=== PATIENT | male | born 1985 | race African-American/Black ===

== ENCOUNTER 2022-02-01 11:59 | Inpatient (IN) | payer BC ==
[~2022-02-01 11:59] MED LIST: Iopamidol 300 61% 100 ML VIAL FS ONE
[2022-02-01 12:55] LABS: #Eosinphils 0.1 10x3/uL (0.0-0.5); #Monocytes 0.6 10x3/uL (0.0-1.1); #Neutrophils 14.4 10x3/uL (1.5-8.4); %Basophils 0.2 % (0.0-2.0); %Eosinophils 0.4 % (0.0-6.0); %Lymphocytes 4.7 % (18.0-47.0); %Monocytes 3.6 % (0.0-10.0); %Neutrophils 90.1 % (40.0-75.0); Hemoglobin 14.3 g/dL (13.5-17.5); Mean Corpuscular Hemoglobin 29.8 pg (27.0-33.0); Mean Platelet Volume 9.7 fl (7.4-10.4); Platelet Count 275 10x3/uL (150-450); RBC Distribution Width 13.4 % (11.5-14.5)
[2022-02-01 13:05] LABS: Actual Bicarbonate (HCO3a) 24.8 mEq/L (22-28); Base Excess (BEa) 2.1 mEq/L (-2.0 to +3.0); CO2 Tension 33.2 mmHg (35.0-45.0); Calcium, Ionized (arterial) 1.15 mmol/L (1.12-1.30); Carboxyhemoglobin (COHb) 0.7 gm% (0.0-3.0); Hemoglobin (Hb) 14.7 g/dL (14.0-18.0); O2 Tension (PaO2), arterial 90.3 mmHg (80.0-100.0); Potassium - ABG Lab 4.4 mmol/L (3.70-5.30); Puncture Site LRA; pH, Arterial 7.49 (7.35-7.45)
[2022-02-01 13:13] LABS: ALT (SGPT) 15 U/L (8-55); AST (SGOT) 23 U/L (5-34); Albumin 3.5 g/dL (3.5-5.0); Alkaline Phosphatase 64 U/L (40-110); Anion Gap 18 mmol/L (10-20); BUN (Urea Nitrogen) 18 mg/dL (8.9-20.6); Bilirubin, Total 0.6 mg/dL (0.2-1.2); Calc. Creatinine Clearance 0 mL/min (70-130); Calcium 9.4 mg/dL (7.8-10.44); Carbon Dioxide 22 mmol/L (22-29); Chloride 98 mmol/L (98-107); Estimated GFR 89; Globulin 3.7 g/dL (2.4-3.5); Glucose 113 mg/dL (70-105); Potassium 4.6 mmol/L (3.5-5.1); Protein, Total 7.2 g/dL (6.0-8.3); Sodium 133 mmol/L (136-145)
[2022-02-01] MEDS ORDERED: Vancomycin 1 GM VIAL ONE (13:41)
[2022-02-01] MEDS ORDERED: Acetaminophen 325 MG TAB PO PRN (13:47)
[2022-02-01] MEDS ORDERED: HYDROcodone/Acetaminophen 5/325 mg Tablet PO PRN (13:47)
[2022-02-01] MEDS ORDERED: Doxycycline 100 MG in Syringe 0 ML IVPB SCH (13:58)
[2022-02-01 14:13] LABS: HIV (1/2) Antibody/Antigen Reflxed Confirmation (NonReactive); HIV 1/2 INDEX 1576.17 S/CO (<1.00)
[2022-02-01 14:46] LABS: SARS-CoV-2 NAA Rapid Test Not Detected (NotDetected)
[2022-02-01] MEDS ORDERED: predniSONE 20 MG TAB ONE (14:47)
[2022-02-01] MEDS ORDERED: Sulfameth/Trimethoprim DS 800-160mg TAB ONE (14:48)
[2022-02-01] MEDS ORDERED: SULFAMETHOXAZOLE IVPB SCH (15:15)
[2022-02-01] MEDS ORDERED: WATER IVPB SCH (15:15)
[2022-02-01] MEDS ORDERED: TRIMETHOPRIM IVPB SCH (15:15)
[2022-02-01] MEDS ORDERED: DEXTROSE 5% IVPB SCH (15:15)
[2022-02-01] MEDS ORDERED: Piperacillin/Tazobactam 3.375 GM in Sodium Chloride 0.9% 100 ML IVPB SCH (18:00)
[2022-02-01] MEDS ORDERED: methylPREDNISolone Sod Succ 40 MG VIAL IVP SCH (18:00)
[2022-02-01] MEDS: predniSONE 20 MG TAB PO SCH (20:18)
[2022-02-01] MEDS: Enoxaparin Sodium 40 MG/0.4 ML SYRINGE SC SCH (20:19)
[2022-02-01] MEDS: Piperacillin/Tazobactam 3.375 GM in Sodium Chloride 0.9% 100 ML IVPB SCH (21:29)
[2022-02-01] MEDS: SULFAMETHOXAZOLE IVPB SCH (21:30)
[2022-02-01] MEDS: WATER IVPB SCH (21:30)
[2022-02-01] MEDS: DEXTROSE 5% IVPB SCH (21:30)
[2022-02-01] MEDS: TRIMETHOPRIM IVPB SCH (21:30)
[2022-02-01] MEDS: Vancomycin HCl 750 MG in Sodium Chloride 0.9% 250 ML 250 ML IVPB SCH (22:24)
[2022-02-02] MEDS: DEXTROSE 5% IVPB SCH ×4 (03:23→21:24)
[2022-02-02] MEDS: WATER IVPB SCH ×4 (03:23→21:24)
[2022-02-02] MEDS: TRIMETHOPRIM IVPB SCH ×4 (03:23→21:24)
[2022-02-02] MEDS: SULFAMETHOXAZOLE IVPB SCH ×4 (03:23→21:24)
[2022-02-02 03:48] LABS: #Monocytes 0.2 10x3/uL (0.0-1.1); #Neutrophils 9.3 10x3/uL (1.5-8.4); %Basophils 0.2 % (0.0-2.0); %Lymphocytes 7.9 % (18.0-47.0); Hemoglobin 12.2 g/dL (13.5-17.5); Mean Corpuscular HGB CONC 34.4 g/dL (32.0-36.0); Mean Corpuscular Hemoglobin 29.5 pg (27.0-33.0); Mean Platelet Volume 9.6 fl (7.4-10.4); Platelet Count 263 10x3/uL (150-450); RBC Distribution Width 13.4 % (11.5-14.5); Red Blood Cell (RBC) Count 4.13 10x6/uL (4.32-5.72); White Blood Cell (WBC) Count 10.5 10x3/uL (3.5-10.5)
[2022-02-02 04:01] LABS: ALT (SGPT) 14 U/L (8-55); AST (SGOT) 19 U/L (5-34); Albumin 2.9 g/dL (3.5-5.0); Alkaline Phosphatase 53 U/L (40-110); Anion Gap 15 mmol/L (10-20); BUN (Urea Nitrogen) 18 mg/dL (8.9-20.6); Bilirubin, Total 0.3 mg/dL (0.2-1.2); Calc. Creatinine Clearance 96 mL/min (70-130); Calcium 8.8 mg/dL (7.8-10.44); Carbon Dioxide 20 mmol/L (22-29); Chloride 104 mmol/L (98-107); Estimated GFR 117; Globulin 3.2 g/dL (2.4-3.5); Glucose 123 mg/dL (70-105); Potassium 4.7 mmol/L (3.5-5.1); Protein, Total 6.1 g/dL (6.0-8.3); Sodium 134 mmol/L (136-145)
[2022-02-02] MEDS: Vancomycin HCl 750 MG in Sodium Chloride 0.9% 250 ML 250 ML IVPB SCH ×4 (05:22→21:48)
[2022-02-02] MEDS: Piperacillin/Tazobactam 3.375 GM in Sodium Chloride 0.9% 100 ML IVPB SCH ×3 (05:23→21:03)
[2022-02-02 05:42] LABS: ALV-art Gradient 244.875 mmHg (0-20); Actual Bicarbonate (HCO3a) 21.9 mEq/L (22-28); Base Excess (BEa) -2.4 mEq/L (-2.0 to +3.0); CO2 Tension 36.3 mmHg (35.0-45.0); Calcium, Ionized (arterial) 1.19 mmol/L (1.12-1.30); Carboxyhemoglobin (COHb) 0.1 gm% (0.0-3.0); Critical Notified By: CP.PH; Hemoglobin (Hb) 13.2 g/dL (14.0-18.0); O2 Tension (PaO2), arterial 101.9 mmHg (80.0-100.0); Potassium - ABG Lab 4.3 mmol/L (3.70-5.30); Puncture Site RRA; RapidComm Collect By CP.PH
[2022-02-02] MEDS: predniSONE 20 MG TAB PO SCH (08:30)
[2022-02-02 11:45] LABS: Legionella Urinary Ag Negative (Negative); Strep pneumo Urine Ag NEGATIVE (NEGATIVE)
[2022-02-02 13:48] LABS: Vancomycin, Trough 11.9 ug/mL
[2022-02-02 14:10] LABS: Syphilis Antibody Nonreactive (Nonreactive); Syphilis Antibody Index 0.03 S/CO (<1.00 Non-Reactive)
[2022-02-02] MEDS: guaiFENesin 100 MG/5 ML UDCUP PO PRN (17:56)
[2022-02-02] MEDS: Raltegravir Potassium 400 MG TAB PO SCH (21:02)
[2022-02-02] MEDS: methylPREDNISolone Sod Succ 40 MG VIAL IVP SCH (21:03)
[2022-02-02] MEDS: Enoxaparin Sodium 40 MG/0.4 ML SYRINGE SC SCH (21:03)
[2022-02-03] MEDS: DEXTROSE 5% IVPB SCH ×4 (03:55→21:19)
[2022-02-03] MEDS: SULFAMETHOXAZOLE IVPB SCH ×4 (03:55→21:19)
[2022-02-03] MEDS: TRIMETHOPRIM IVPB SCH ×4 (03:55→21:19)
[2022-02-03] MEDS: WATER IVPB SCH ×4 (03:55→21:19)
[2022-02-03 04:21] LABS: Mean Corpuscular Hemoglobin 29.7 pg (27.0-33.0); Mean Corpuscular Volume 84.9 fl (81.2-95.1); Mean Platelet Volume 10.3 fl (7.4-10.4); Platelet Count 283 10x3/uL (150-450); RBC Distribution Width 13.2 % (11.5-14.5); Red Blood Cell (RBC) Count 4.04 10x6/uL (4.32-5.72); White Blood Cell (WBC) Count 23.9 10x3/uL (3.5-10.5)
[2022-02-03 04:32] LABS: Anion Gap 13 mmol/L (10-20); BUN (Urea Nitrogen) 17 mg/dL (8.9-20.6); Calc. Creatinine Clearance 92 mL/min (70-130); Carbon Dioxide 21 mmol/L (22-29); Chloride 103 mmol/L (98-107); Estimated GFR 115; Glucose 127 mg/dL (70-105); Potassium 4.5 mmol/L (3.5-5.1); Sodium 132 mmol/L (136-145)
[2022-02-03 04:44] LABS: MDiff Complete? YES
[2022-02-03 04:46] LABS: Band 1 % (5-11); Lymphocytes 5 % (21-51); Monocytes 3 % (0-10); Neutrophil 90 % (42-75); Platelet Morphology Comment Appears Adequate; Reactive Lymphocytes 1 % (0-10)
[2022-02-03 04:47] LABS: RBC Morphology Normal; Toxic Granulation MODERATE; Vacuoles SLIGHT
[2022-02-03] MEDS: guaiFENesin 100 MG/5 ML UDCUP PO PRN (05:19)
[2022-02-03] MEDS: Piperacillin/Tazobactam 3.375 GM in Sodium Chloride 0.9% 100 ML IVPB SCH ×3 (05:19→21:19)
[2022-02-03] MEDS: methylPREDNISolone Sod Succ 40 MG VIAL IVP SCH ×2 (09:11→20:22)
[2022-02-03] MEDS: Emtricitabine/Tenofovir 200-300 MG TAB PO SCH (09:11)
[2022-02-03] MEDS: Fluconazole 100 MG TAB PO SCH (09:11)
[2022-02-03] MEDS: Raltegravir Potassium 400 MG TAB PO SCH ×2 (09:11→20:22)
[2022-02-03] MEDS: guaiFENesin/Codeine Phosphate 100 mg/10 mg 5 ml UD Cup PO PRN ×2 (10:04→20:22)
[2022-02-03 10:37] LABS: HIV 1 Antibody Multi-Spot Reactive (Non Reactive); HIV 2 Antibody Multi-Spot Non Reactive (Non Reactive); HIV Multi-spot Interp HIV-1 Positive (.)
[2022-02-03] MEDS: Benzonatate 100 MG CAP PO PRN ×2 (15:59→20:22)
[2022-02-03] MEDS: Enoxaparin Sodium 40 MG/0.4 ML SYRINGE SC SCH (20:22)
[2022-02-04] MEDS: TRIMETHOPRIM IVPB SCH ×4 (03:43→21:30)
[2022-02-04] MEDS: WATER IVPB SCH ×4 (03:43→21:30)
[2022-02-04] MEDS: DEXTROSE 5% IVPB SCH ×4 (03:43→21:30)
[2022-02-04] MEDS: SULFAMETHOXAZOLE IVPB SCH ×4 (03:43→21:30)
[2022-02-04] MEDS: Benzonatate 100 MG CAP PO PRN ×4 (03:47→20:54)
[2022-02-04] MEDS: Piperacillin/Tazobactam 3.375 GM in Sodium Chloride 0.9% 100 ML IVPB SCH (05:26)
[2022-02-04 05:33] LABS: #Monocytes 0.4 10x3/uL (0.0-1.1); #Neutrophils 17.4 10x3/uL (1.5-8.4); %Basophils 0.1 % (0.0-2.0); %Lymphocytes 5.6 % (18.0-47.0); %Monocytes 2.2 % (0.0-10.0); %Neutrophils 91.3 % (40.0-75.0); Hemoglobin 12.5 g/dL (13.5-17.5); Mean Corpuscular HGB CONC 35.3 g/dL (32.0-36.0); Mean Corpuscular Hemoglobin 29.8 pg (27.0-33.0); Mean Corpuscular Volume 84.5 fl (81.2-95.1); Platelet Count 293 10x3/uL (150-450); RBC Distribution Width 13.4 % (11.5-14.5); Red Blood Cell (RBC) Count 4.19 10x6/uL (4.32-5.72); White Blood Cell (WBC) Count 19.1 10x3/uL (3.5-10.5)
[2022-02-04 05:58] LABS: Anion Gap 17 mmol/L (10-20); BUN (Urea Nitrogen) 16 mg/dL (8.9-20.6); Calc. Creatinine Clearance 88 mL/min (70-130); Carbon Dioxide 21 mmol/L (22-29); Chloride 101 mmol/L (98-107); Sodium 134 mmol/L (136-145)
[2022-02-04 05:59] LABS: Calcium 9.4 mg/dL (7.8-10.44); Estimated GFR 108; Glucose 124 mg/dL (70-105)
[2022-02-04] MEDS: Emtricitabine/Tenofovir 200-300 MG TAB PO SCH (08:36)
[2022-02-04] MEDS: Fluconazole 100 MG TAB PO SCH (08:36)
[2022-02-04] MEDS: Raltegravir Potassium 400 MG TAB PO SCH ×2 (08:36→20:55)
[2022-02-04] MEDS: methylPREDNISolone Sod Succ 40 MG VIAL IVP SCH ×2 (08:36→20:53)
[2022-02-04 09:37] LABS: %CD4 (Helper/Inducer) 0.8 % (30.8-58.5); Absolute CD4 7 /uL (359-1519); Lymphocytes/Gated Cell Count 0.9 x10E3/uL (0.7-3.1); Total Lymphocyte 6 % (Not Estab.); WBC Total Count 16.3 x10E3/uL (3.4-10.8)
[2022-02-04] MEDS: Enoxaparin Sodium 40 MG/0.4 ML SYRINGE SC SCH (20:53)
[2022-02-04] MEDS: guaiFENesin/Codeine Phosphate 100 mg/10 mg 5 ml UD Cup PO PRN (20:54)
[2022-02-04] MEDS: Senokot S 8.6-50 MG TAB PO SCH (20:54)
[2022-02-05] MEDS: TRIMETHOPRIM IVPB SCH ×4 (03:13→22:50)
[2022-02-05] MEDS: DEXTROSE 5% IVPB SCH ×4 (03:13→22:50)
[2022-02-05] MEDS: SULFAMETHOXAZOLE IVPB SCH ×4 (03:13→22:50)
[2022-02-05] MEDS: WATER IVPB SCH ×4 (03:13→22:50)
[2022-02-05 03:48] LABS: #Monocytes 0.2 10x3/uL (0.0-1.1); %Basophils 0.1 % (0.0-2.0); %Eosinophils 0.1 % (0.0-6.0); %Lymphocytes 3.4 % (18.0-47.0); %Monocytes 1.1 % (0.0-10.0); %Neutrophils 94.1 % (40.0-75.0); Hemoglobin 12.8 g/dL (13.5-17.5); Mean Corpuscular HGB CONC 34.5 g/dL (32.0-36.0); Mean Corpuscular Hemoglobin 29.2 pg (27.0-33.0); Mean Corpuscular Volume 84.7 fl (81.2-95.1); Mean Platelet Volume 10.3 fl (7.4-10.4); Platelet Count 316 10x3/uL (150-450); RBC Distribution Width 13.3 % (11.5-14.5); Red Blood Cell (RBC) Count 4.38 10x6/uL (4.32-5.72)
[2022-02-05 04:00] LABS: Anion Gap 14 mmol/L (10-20); BUN (Urea Nitrogen) 18 mg/dL (8.9-20.6); Calc. Creatinine Clearance 79 mL/min (70-130); Calcium 9.6 mg/dL (7.8-10.44); Carbon Dioxide 23 mmol/L (22-29); Chloride 98 mmol/L (98-107); Estimated GFR 96; Glucose 120 mg/dL (70-105); Potassium 4.6 mmol/L (3.5-5.1); Sodium 130 mmol/L (136-145)
[2022-02-05 08:18] LABS: Ref Lab Test Ordered PNEUMOCYSTIS PCR; Reference Lab Name LABCORP
[2022-02-05] MEDS: methylPREDNISolone Sod Succ 40 MG VIAL IVP SCH ×2 (09:16→20:19)
[2022-02-05] MEDS: Fluconazole 100 MG TAB PO SCH (09:17)
[2022-02-05] MEDS: Emtricitabine/Tenofovir 200-300 MG TAB PO SCH (09:17)
[2022-02-05] MEDS: Senokot S 8.6-50 MG TAB PO SCH ×2 (09:17→19:29)
[2022-02-05] MEDS: Raltegravir Potassium 400 MG TAB PO SCH ×2 (09:17→20:20)
[2022-02-05] MEDS: Benzonatate 100 MG CAP PO PRN (17:14)
[2022-02-05] MEDS: guaiFENesin/Codeine Phosphate 100 mg/10 mg 5 ml UD Cup PO PRN (19:29)
[2022-02-05] MEDS: Enoxaparin Sodium 40 MG/0.4 ML SYRINGE SC SCH (20:19)
[2022-02-05 23:08] LABS: Mycoplasma pneumoniae IgG AB 942 U/mL (0-99); Mycoplasma pneumoniae IgM AB Less than 770 U/mL (0-769)
[2022-02-06] MEDS: SULFAMETHOXAZOLE IVPB SCH ×4 (04:09→21:49)
[2022-02-06] MEDS: WATER IVPB SCH ×4 (04:09→21:49)
[2022-02-06] MEDS: DEXTROSE 5% IVPB SCH ×4 (04:09→21:49)
[2022-02-06] MEDS: TRIMETHOPRIM IVPB SCH ×4 (04:09→21:49)
[2022-02-06] MEDS: Benzonatate 100 MG CAP PO PRN (04:25)
[2022-02-06] MEDS: methylPREDNISolone Sod Succ 40 MG VIAL IVP SCH ×2 (08:38→20:24)
[2022-02-06] MEDS: Fluconazole 100 MG TAB PO SCH (08:39)
[2022-02-06] MEDS: Raltegravir Potassium 400 MG TAB PO SCH ×2 (08:39→20:24)
[2022-02-06] MEDS: Senokot S 8.6-50 MG TAB PO SCH ×2 (08:39→20:25)
[2022-02-06] MEDS: Emtricitabine/Tenofovir 200-300 MG TAB PO SCH (08:39)
[2022-02-06 09:39] LABS: QuantiFERON-TB Gold Plus Indeterminate (Negative)
[2022-02-06] MEDS: Benzonatate 100 MG CAP PO SCH ×3 (10:18→20:24)
[2022-02-06 14:36] LABS: CMV DNA-PCR Test Negative (Negative)
[2022-02-06] MEDS: Enoxaparin Sodium 40 MG/0.4 ML SYRINGE SC SCH (20:24)
[2022-02-06] MEDS: guaiFENesin/Codeine Phosphate 100 mg/10 mg 5 ml UD Cup PO PRN (20:24)
[2022-02-07] MEDS: SULFAMETHOXAZOLE IVPB SCH ×4 (03:20→21:39)
[2022-02-07] MEDS: DEXTROSE 5% IVPB SCH ×4 (03:20→21:39)
[2022-02-07] MEDS: TRIMETHOPRIM IVPB SCH ×4 (03:20→21:39)
[2022-02-07] MEDS: WATER IVPB SCH ×4 (03:20→21:39)
[2022-02-07] MEDS: methylPREDNISolone Sod Succ 40 MG VIAL IVP SCH ×2 (08:24→21:14)
[2022-02-07] MEDS: guaiFENesin/Codeine Phosphate 100 mg/10 mg 5 ml UD Cup PO PRN ×2 (08:24→15:48)
[2022-02-07] MEDS: Benzonatate 100 MG CAP PO SCH ×3 (08:24→21:14)
[2022-02-07] MEDS: Senokot S 8.6-50 MG TAB PO SCH ×2 (08:25→21:14)
[2022-02-07] MEDS: Emtricitabine/Tenofovir 200-300 MG TAB PO SCH (08:28)
[2022-02-07] MEDS: Raltegravir Potassium 400 MG TAB PO SCH ×2 (08:28→21:14)
[2022-02-07] MEDS: Fluconazole 100 MG TAB PO SCH (08:28)
[2022-02-07] MEDS: Polyethylene Glycol 3350 17 GM Packet PO SCH (09:37)
[2022-02-07 18:12] LABS: A. flavus Negative (Neg:<1:1); A. fumigatus Negative (Neg:<1:1); A. niger Negative (Neg:<1:1); Blastomyces AB Negative (Neg:<1:1)
[2022-02-07] MEDS: Enoxaparin Sodium 40 MG/0.4 ML SYRINGE SC SCH ×2 (21:14→21:17)
[2022-02-08] MEDS: Sulfameth/Trimethoprim DS 800-160mg TAB PO SCH ×4 (04:40→21:13)
[2022-02-08 05:10] LABS: Anion Gap 13 mmol/L (10-20); BUN (Urea Nitrogen) 22 mg/dL (8.9-20.6); CRP (Inflammatory) 0.55 mg/dL (= or < 0.5); Calc. Creatinine Clearance 84 mL/min (70-130); Calcium 10.3 mg/dL (7.8-10.44); Carbon Dioxide 24 mmol/L (22-29); Chloride 95 mmol/L (98-107); Estimated GFR 103; Glucose 141 mg/dL (70-105); Potassium 5.1 mmol/L (3.5-5.1); Sodium 127 mmol/L (136-145)
[2022-02-08 05:31] LABS: #Monocytes 0.2 10x3/uL (0.0-1.1); %Basophils 0.1 % (0.0-2.0); %Lymphocytes 7.2 % (18.0-47.0); %Monocytes 1.3 % (0.0-10.0); %Neutrophils 89.1 % (40.0-75.0); Hemoglobin 13.9 g/dL (13.5-17.5); Mean Corpuscular HGB CONC 34.3 g/dL (32.0-36.0); Mean Corpuscular Hemoglobin 29.4 pg (27.0-33.0); Mean Corpuscular Volume 85.6 fl (81.2-95.1); Mean Platelet Volume 10.1 fl (7.4-10.4); Platelet Count 381 10x3/uL (150-450); RBC Distribution Width 13.5 % (11.5-14.5); Red Blood Cell (RBC) Count 4.73 10x6/uL (4.32-5.72); White Blood Cell (WBC) Count 13.5 10x3/uL (3.5-10.5)
[2022-02-08] MEDS: guaiFENesin/Codeine Phosphate 100 mg/10 mg 5 ml UD Cup PO PRN ×2 (08:07→21:13)
[2022-02-08] MEDS: Raltegravir Potassium 400 MG TAB PO SCH ×2 (08:08→21:13)
[2022-02-08] MEDS: Emtricitabine/Tenofovir 200-300 MG TAB PO SCH (08:09)
[2022-02-08] MEDS: Fluconazole 100 MG TAB PO SCH (08:09)
[2022-02-08] MEDS: Polyethylene Glycol 3350 17 GM Packet PO SCH (08:11)
[2022-02-08] MEDS: Benzonatate 100 MG CAP PO SCH ×3 (08:16→21:13)
[2022-02-08] MEDS: Senokot S 8.6-50 MG TAB PO SCH ×2 (08:16→19:54)
[2022-02-08] MEDS ORDERED: methylPREDNISolone 4 mg Tablet PO SCH (09:00)
[2022-02-08] MEDS: Enoxaparin Sodium 40 MG/0.4 ML SYRINGE SC SCH (21:14)
[2022-02-09] MEDS: Sulfameth/Trimethoprim DS 800-160mg TAB PO SCH ×4 (03:36→21:23)
[2022-02-09] MEDS: Benzonatate 100 MG CAP PO SCH ×3 (08:28→21:24)
[2022-02-09] MEDS: guaiFENesin/Codeine Phosphate 100 mg/10 mg 5 ml UD Cup PO PRN ×2 (08:28→21:23)
[2022-02-09] MEDS: Fluconazole 100 MG TAB PO SCH (08:30)
[2022-02-09] MEDS: Emtricitabine/Tenofovir 200-300 MG TAB PO SCH (08:30)
[2022-02-09] MEDS: Raltegravir Potassium 400 MG TAB PO SCH ×2 (08:31→21:23)
[2022-02-09] MEDS: methylPREDNISolone 4 mg Tablet PO SCH (08:32)
[2022-02-09] MEDS: Polyethylene Glycol 3350 17 GM Packet PO SCH (08:35)
[2022-02-09] MEDS: Senokot S 8.6-50 MG TAB PO SCH ×2 (10:35→21:24)
[2022-02-09] MEDS: Enoxaparin Sodium 40 MG/0.4 ML SYRINGE SC SCH (21:24)
[2022-02-10] MEDS: Sulfameth/Trimethoprim DS 800-160mg TAB PO SCH ×4 (04:04→21:57)
[2022-02-10 04:45] VITALS: BMI 22.4
[2022-02-10] MEDS: Polyethylene Glycol 3350 17 GM Packet PO SCH (08:43)
[2022-02-10] MEDS: Senokot S 8.6-50 MG TAB PO SCH ×2 (08:43→21:57)
[2022-02-10] MEDS: Benzonatate 100 MG CAP PO SCH ×3 (09:47→21:57)
[2022-02-10] MEDS: methylPREDNISolone 4 mg Tablet PO SCH (09:47)
[2022-02-10] MEDS: Fluconazole 100 MG TAB PO SCH (09:47)
[2022-02-10] MEDS: Emtricitabine/Tenofovir 200-300 MG TAB PO SCH (09:47)
[2022-02-10] MEDS: Raltegravir Potassium 400 MG TAB PO SCH ×2 (09:58→21:58)
[2022-02-10] MEDS: Enoxaparin Sodium 40 MG/0.4 ML SYRINGE SC SCH (21:57)
[2022-02-11] MEDS: Sulfameth/Trimethoprim DS 800-160mg TAB PO SCH ×4 (06:03→21:39)
[2022-02-11] MEDS: Polyethylene Glycol 3350 17 GM Packet PO SCH (08:20)
[2022-02-11] MEDS: methylPREDNISolone 4 mg Tablet PO SCH (08:20)
[2022-02-11] MEDS: Emtricitabine/Tenofovir 200-300 MG TAB PO SCH (08:20)
[2022-02-11] MEDS: Benzonatate 100 MG CAP PO SCH ×3 (08:20→21:37)
[2022-02-11] MEDS: Raltegravir Potassium 400 MG TAB PO SCH ×2 (08:20→21:38)
[2022-02-11] MEDS: Fluconazole 100 MG TAB PO SCH (08:20)
[2022-02-11] MEDS: Senokot S 8.6-50 MG TAB PO SCH ×2 (08:20→21:39)
[2022-02-11] MEDS: Sodium Chloride For Inhalation 0.9% 3 ML NEB NEB SCH (20:17)
[2022-02-11] MEDS: Enoxaparin Sodium 40 MG/0.4 ML SYRINGE SC SCH (21:37)
[2022-02-12] MEDS: Sodium Chloride For Inhalation 0.9% 3 ML NEB NEB SCH ×2 (01:11→07:05)
[2022-02-12] MEDS: Sulfameth/Trimethoprim DS 800-160mg TAB PO SCH ×2 (06:11→08:35)
[2022-02-12 08:35] VITALS: BP 125/68; TEMP 98.3
[2022-02-12] MEDS: methylPREDNISolone 4 mg Tablet PO SCH (08:35)
[2022-02-12] MEDS: Benzonatate 100 MG CAP PO SCH (08:35)
[2022-02-12] MEDS: Raltegravir Potassium 400 MG TAB PO SCH (08:35)
[2022-02-12] MEDS: Fluconazole 100 MG TAB PO SCH (08:35)
[2022-02-12] MEDS: Senokot S 8.6-50 MG TAB PO SCH (08:35)
[2022-02-12] MEDS: Emtricitabine/Tenofovir 200-300 MG TAB PO SCH (08:35)
[2022-02-12] MEDS: Polyethylene Glycol 3350 17 GM Packet PO SCH (08:36)
== END 2022-02-12 12:03 | disposition home or self-care (01) | DRG 974 ==
LOC: CSHERS 11:59 → SUATTDRO 11:59 → CSHICU 17:25 → CSHTELE 02-10 20:16
PROVIDERS: ADMIT Internal Medicine; ATTEND Family Medicine
PROC: 3E03329 Introduction of Other Anti-infective into Peripheral Vein, Percutaneous Approach (ICD-10-PCS; principal; 2022-02-01)
PROC: 5A0955A Assistance with Respiratory Ventilation, Greater than 96 Consecutive Hours, High Flow/Velocity Cannula (ICD-10-PCS; 2022-02-01)
DX: A41.9 Sepsis, unspecified organism (principal); J96.01 Acute respiratory failure with hypoxia; B20 Human immunodeficiency virus [HIV] disease; B59 Pneumocystosis; B37.0 Candidal stomatitis; E87.1 Hypo-osmolality and hyponatremia; F17.210 Nicotine dependence, cigarettes, uncomplicated; R65.20 Severe sepsis without septic shock; Z20.822 Contact with and (suspected) exposure to COVID-19; Z88.8 Allergy status to other drugs, medicaments and biological substances; Z79.899 Other long term (current) drug therapy; Z79.52 Long term (current) use of systemic steroids; Z83.3 Family history of diabetes mellitus; Z82.49 Family history of ischemic heart disease and other diseases of the circulatory system
CPT/HCPCS: 36415; 36600; 71045; 71270; 80048; 80053; 80202; 82805; 83605; 83615; 85025; 86140; 86361; 86480; 86606; 86612; 86701; 86702; 86780; 87040; 87070; 87081; 87205; 87385; 87389; 87449; 87497; 87899; 94640; 94667; 94668; 94669; 94760; 94799; 96365; 96366; 96367; J1650; J1956; J2543; J2920; J3370; J3490; J7050; J7070; J7509; J7512; J7620; Q9967

== ENCOUNTER 2022-05-08 08:46 | Outpatient (CLI) | payer BC | END 2022-05-08 08:47 | disposition home or self-care (01) | LOC: CSHCP 08:46 | PROVIDERS: ATTEND Internal Medicine | DX: J96.11 Chronic respiratory failure with hypoxia (principal); R94.2 Abnormal results of pulmonary function studies | CPT/HCPCS: 94010; 94726; 94729; 94760 ==

== ENCOUNTER 2022-06-24 14:50 | Emergency (ER) | payer BC ==
[2022-06-24 16:36] LABS: SARS-CoV-2 NAA Rapid Test Not Detected (NotDetected)
== END 2022-06-24 17:04 | disposition home or self-care (01) ==
LOC: CSHERS 14:50
DX: J06.9 Acute upper respiratory infection, unspecified (principal); B97.89 Other viral agents as the cause of diseases classified elsewhere; F17.210 Nicotine dependence, cigarettes, uncomplicated; Z20.822 Contact with and (suspected) exposure to COVID-19
CPT/HCPCS: 71045

== ENCOUNTER 2024-09-19 11:07 | Emergency (ER) | payer OTHER ==
[2024-09-19] MEDS ORDERED: Lidocaine Viscous Sol 2% 15 ml UD Cup ONE (12:39)
[2024-09-19] MEDS ORDERED: Ketorolac Tromethamine 30 MG (1 mL) VIAL ONE (12:39)
[2024-09-19] MEDS ORDERED: Boostrix 0.5 ML (Tdap) VIAL (>/=7 yrs of age) ONE (12:40)
[2024-09-19] MEDS ORDERED: Amoxicillin/Potassium Clav 875 MG TAB ONE (14:10)
== END 2024-09-19 14:14 | disposition home or self-care (01) ==
LOC: CSHERS 11:07
DX: K04.7 Periapical abscess without sinus (principal); F17.210 Nicotine dependence, cigarettes, uncomplicated
CPT/HCPCS: 41800; 90715; 96372; 99282; J1885